=== PATIENT | male | born 1960 | race Caucasian/White ===

== ENCOUNTER 2020-05-17 05:34 | Outpatient (RCR) | payer MEDICARE, OTHER ==
[~2020-05-17] VITALS: Ht 180.3 cm; Wt 101.3 kg
[~2020-05-17 05:34] MED LIST: AMLO-167 PO; AMLO1CAP; ASPI-875 PO; ASPI-999 PO; CARI350T27 PO; FAMO20TA3 PO; HCT25T; HYDROCHLOROTHIAZIDE; IBP200T PO; META800T5; METO-272 PO; METO50TA7 PO; OMEP-10 PO; PROP1TAB77; SIMV20TA3 PO; Tylenol #3 PO; [UNRECOGNIZED DRUG - CODE]
== END 2020-05-17 10:22 | disposition home or self-care (01) ==
LOC: PREOP 05:34
PROVIDERS: ATTEND Surgery
DX: Z01.812 Encounter for preprocedural laboratory examination (principal); K80.20 Calculus of gallbladder without cholecystitis without obstruction; Z20.828 Contact with and (suspected) exposure to other viral communicable diseases
CPT/HCPCS: 87635

== ENCOUNTER 2020-05-20 07:33 | Day surgery (SDC) | payer MEDICARE, OTHER ==
[~2020-05-20] VITALS: Ht 180.3 cm; Wt 101.3 kg
[2020-05-20] VITALS (11 sets, daily range): BP systolic 105–134; BP diastolic 61–90
--- OUTSIDE RECORDS SUMMARY | 2020-05-20 07:41 | XMS REPORT | Continuity of Care Document ---
Demographics Preferred Language Unknown Marital Status Unknown Mandaen Affiliation Unknown Race Unknown Ethnic Group Unknown Author Organization Unknown Address Unknown Phone Unavailable Allergies Active Description Code Type Severity Reaction Onset Reported/Identified Relationship to Patient Clinical Status Yes IV CONTRAST DYE I V CONTRAST DYE UNKNOWN Yes NO KNOWN DRUG ALLERGIES NO KNOWN DRUG ALLERG UNKNOWN Yes TAPE TAPE U NKNOWN Yes IV CONTRAST DYE U NKNOWN UNKNOWN Yes NO KNOWN DRUG ALLERGIES UNKNOWN NO KNOWN DRUG ALLERG Yes NO KNOWN DRUG ALLERGIES UNKNOWN UNKNOWN Yes TAPE UNKNOWN UNKNOWN Yes [id number] (IV DYE, IODINE CONTAINING) [id number] (IV DYE, IODINE CONTAINING) Mild N/A 12/19/2009 Yes Iodinated Contrast Media [id number] Drug Allergy Unknown Hives 2020 Medications There is no data. 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, 09/03/2015 BURAK MURRYP Ot I73.9 10/14/2015 KEREN GARICA MD Ot M47.816 12/17/2015 BURAK MURRYP Ot E78.5 12/17/2015 BURAK MURRYP Ot I 10 12/17/2015 BURAK MURRYP Ot I25.10 12/17/2015 BURAK MURRYP Ot I77.9 10/04/2016 BURAK MURRY COOK PICKLED MEAT Ot 786.50 CHEST PAIN NOS 10/04/2016 KOREY SILVA MD Ot 840.4 SPRAIN ROTATOR CUFF 10/04/2016 KOREY SILVA MD Ot 840.7 (SLAP) SUPERIOR GLENOID LABRUM LESIONS 10/04/2016 KOREY SILVA MD Ot E000.8 OTHER EXTERNAL CAUSE STATUS 10/04/2016 KOREY SILVA MD Ot E928.9 ACCIDENT NOS 10/04/2016 BURAK MURRY COOK PICKLED MEAT Ot I73.9 PERIPHERAL VASCULAR DISEASE, UNSPECIFIED 10/04/2016 JOSE MARTÍNEZ, KEREN Hurtado Ot M47.816 SPONDYLOSIS W/O MYELOPATHY OR RADICULOPA 10/04/2016 BURAK MURRYP Ot E78.5 HYPERLIPIDEMIA, UNSPECIFIED 10/04/2016 BURAK MURRY COOK PICKLED MEAT Ot I 10 ESSENTIAL (PRIMARY) HYPERTENSION 10/04/2016 BURAK MURRYP Ot I25.10 ATHSCL HEART DISEASE OF [place] CORONARY 10/04/2016 BURAK MURRY COOK PICKLED MEAT Ot I77.9 DISORDER OF ARTERIES AND ARTERIOLES, UNS 10/05/2016 AIME ROSS MD Ot M48.0 6 SPINAL STENOSIS, LUMBAR REGION 10/05/2016 AIME ROSS MD Ot M48.0 6 SPINAL STENOSIS, LUMBAR REGION 10/10/2016 AIME ROSS MD Ot M48.0 6 SPINAL STENOSIS, LUMBAR REGION 10/22/2016 ALVINO GAMBOA A 924.2 0 CONTUSION OF FOOT 10/22/2016 ALVINO GAMBOA S90.3 1XA CONTUSION OF RIGHT FOOT, INITIAL ENCOUNTER 10/30/2016 AIME ROSS MD Ot M48.0 6 SPINAL STENOSIS, LUMBAR REGION 01/23/2017 AIME ROSS 724.2 LUMBAGO 01/23/2017 AIME ROSS M54.5 LOW BACK PAIN 09/27/2017 W 401.1 BE GN ESSENTIAL HYPERTENSION 09/27/2017 A 709.9 UNSP ECIFIED DISORDER OF SKIN AND SUBCUTANEOUS TISSUE 09/27/2017 W I10 ESSENT IAL (PRIMARY) HYPERTENSION 09/27/2017 A L98.9 DISO RDER OF THE SKIN AND SUBCUTANEOUS TISSUE, UNSPECIFIED 01/11/2018 Brokob, Jeanna W 729.5 PAIN IN LIMB 01/11/2018 Brokob, Jeanna W M79.643 PAIN IN UNSPECIFIED HAND 01/11/2018 Brokob, Jeanna W 053.9 HERPES ZOSTER WITHOUT MENTION OF COMPLICATION 01/11/2018 Brokob, Jeanna W 729.5 PAIN IN LIMB 01/11/2018 Brokob, Jeanna W B02.9 ZOSTER WITHOUT COMPLICATIONS 01/11/2018 Brokob, Jeanna W M79.643 PAIN IN UNSPECIFIED HAND 01/11/2018 W 053.9 HERP ES ZOSTER WITHOUT MENTION OF COMPLICATION 01/11/2018 W 729.5 PAIN IN LIMB 01/11/2018 W B02.9 ZOST ER WITHOUT COMPLICATIONS 01/11/2018 W M79.643 PA IN IN UNSPECIFIED HAND 01/11/2018 Brokob, Jeanna W 053.9 HERPES ZOSTER WITHOUT MENTION OF COMPLICATION 01/11/2018 Brokob, Jeanna W 729.5 PAIN IN LIMB 01/11/2018 Brokob, Jeanna W B02.9 ZOSTER WITHOUT COMPLICATIONS 01/11/2018 Brokob, Jeanna W M79.643 PAIN IN UNSPECIFIED HAND 05/27/2019 Adeola Orantes W 466.0 ACUTE BRONCHITIS 05/27/2019 Vianey Orantesa W 780.79 OTHER MALAISE AND FATIGUE 05/27/2019 Vianey Orantesa W 989.5 TOXIC EFFECT OF VENOM 05/27/2019 Vianey Orantesa W J20.9 ACUTE BRONCHITIS, UNSPECIFIED 05/27/2019 Lamberto Adeola W R53.83 OTHER FATIGUE 05/27/2019 Lamberto Adeola W S60.229 CONTUSION OF UNSPECIFIED HAND 05/27/2019 Lamberto Adeola W 466.0 ACUTE BRONCHITIS 05/27/2019 Lamberto Adeola W 780.52 INSOMNIA, UNSPECIFIED 05/27/2019 Lamberto Adeola W 780.79 OTHER MALAISE AND FATIGUE 05/27/2019 Lamberto Adeola W 989.5 TOXIC EFFECT OF VENOM 05/27/2019 Vianey Orantesa W G47.00 INSOMNIA, UNSPECIFIED 05/27/2019 Lamberto Adeola W J20.9 ACUTE BRONCHITIS, UNSPECIFIED 05/27/2019 Adeola Orantes W R53.83 OTHER FATIGUE 05/27/2019 Adeola Orantes W S60.229 CONTUSION OF UNSPECIFIED HAND 05/27/2019 W 466.0 ACUT E BRONCHITIS 05/27/2019 W 780.52 INS OMNIA, UNSPECIFIED 05/27/2019 W 780.79 OTH ER MALAISE AND FATIGUE 05/27/2019 W 989.5 TOXI C EFFECT OF VENOM 05/27/2019 W G47.00 INS OMNIA, UNSPECIFIED 05/27/2019 W J20.9 ACUT E BRONCHITIS, UNSPECIFIED 05/27/2019 W R53.83 OTH ER FATIGUE 05/27/2019 W S60.229 CO NTUSION OF UNSPECIFIED HAND 05/27/2019 Adeola Orantes W 466.0 ACUTE BRONCHITIS 05/27/2019 Adeola Orantes 780.52 INSOMNIA, UNSPECIFIED 05/27/2019 Adeola Orantes W 780.79 OTHER MALAISE AND FATIGUE 05/27/2019 Adeola Orantes W 989.5 TOXIC EFFECT OF VENOM 05/27/2019 Adeola Orantes G47.00 INSOMNIA, UNSPECIFIED 05/27/2019 Adeola Orantes W J20.9 ACUTE BRONCHITIS, UNSPECIFIED 05/27/2019 Adeola Orantes W R53.83 OTHER FATIGUE 05/27/2019 Adeola Orantes W S60.229 CONTUSION OF UNSPECIFIED HAND 05/10/2020 LOVELY, BURAK L COOK PICKLED MEAT Ot I73.9 PERIPHERAL VASCULAR DISEASE, UNSPECIFIED 05/10/2020 JOSE MARTÍNEZ, KEREN Hurtado Ot M47.816 SPONDYLOSIS W/O MYELOPATHY OR RADICULOPA 05/10/2020 BAIMA, BURAK L COOK PICKLED MEAT Ot E78.5 HYPERLIPIDEMIA, UNSPECIFIED 05/10/2020 BAIMA, BURAK L COOK PICKLED MEAT Ot I 10 ESSENTIAL (PRIMARY) HYPERTENSION 05/10/2020 BAIHELEN, BURAK L COOK PICKLED MEAT Ot I25.10 ATHSCL HEART DISEASE OF [place] CORONARY 05/10/2020 BAIHELEN, BURAK L COOK PICKLED MEAT Ot I77.9 DISORDER OF ARTERIES AND ARTERIOLES, UNS 05/10/2020 CODY MARTÍNEZ, AIME Hurtado Ot M48.0 6 SPINAL STENOSIS, LUMBAR REGION 2020 LOVELY, BURAK L COOK PICKLED MEAT Ot I73.9 PERIPHERAL VASCULAR DISEASE, UNSPECIFIED 2020 JOSE MARTÍNEZ, KEREN Hurtado Ot M47.816 SPONDYLOSIS W/O MYELOPATHY OR RADICULOPA 2020 BURAK MURRY COOK PICKLED MEAT Ot E78.5 HYPERLIPIDEMIA, UNSPECIFIED 2020 BURAK MURRY COOK PICKLED MEAT Ot I 10 ESSENTIAL (PRIMARY) HYPERTENSION 2020 BURAK MURRY COOK PICKLED MEAT Ot I25.10 ATHSCL HEART DISEASE OF [place] CORONARY 2020 BURAK MURRY COOK PICKLED MEAT Ot I77.9 DISORDER OF ARTERIES AND ARTERIOLES, UNS 2020 CODY MARTÍNEZ, AIME Hurtado Ot M48.0 6 SPINAL STENOSIS, LUMBAR REGION Procedures There is no data. Results Test Result Range [facility] - 09/27/16 10:58 Anion Gap 15 6-14 BUN 17 mg/dL 5-25 Calcium 9.5 mg/dL 8.3-10.4 Chloride 107 mmol/L 95-114 CO2 24 mEq/L 22-33 Creat 1.34 mg/dL 0.50-1.50 eGFR 55 mL/min/1.73m2 >59 Glucose 120 mg/dL 70-110 Osmo 294 280-295 Potassium 5.2 mmol/L 3.5-5.3 Sodium 141 mmol/L 134-148 BNP - 09/29/16 16:07 BNP <10.00 pg/ml 0.00-100.00 [facility] - 11/08/16 10:36 Anion Gap 14 6-14 BUN 15 mg/dL 5-25 Calcium 9.4 mg/dL 8.3-10.4 Chloride 106 mmol/L 95-114 CO2 25 mEq/L 22-33 Creat 1.59 mg/dL 0.50-1.50 eGFR 45 mL/min/1.73m2 >59 Glucose 109 mg/dL 70-110 Osmo 290 280-295 Potassium 4.9 mmol/L 3.5-5.3 Sodium 140 mmol/L 134-148 Comprehensive Metabolic Panel - 05/18/17 15:34 Albumin 4.0 g/dL 3.6-5.1 ALP 84 U/L 35-130 ALT 32 U/L 6-45 Anion Gap 14 6-14 AST 31 U/L 2-40 BUN 13 mg/dL 5-25 Calcium 9.3 mg/dL 8.3-10.4 Chloride 107 mmol/L 95-114 CO2 25 mEq/L 22-33 Creat 1.31 mg/dL 0.50-1.50 eGFR 56 mL/min/1.73m2 >59 Globulin 3.1 g/dL 2.3-3.5 Glucose 106 mg/dL 70-110 Osmo 292 280-295 Potassium 4.5 mmol/L 3.5-5.3 Sodium 141 mmol/L 134-148 TBil 1.1 mg/dL 0.2-1.2 TP 7.1 g/dL 6.0-8.3 Sed Rate - 01/11/18 15:04 Sed Rate 2 mm/hr 0-9 LI w/Reflex - 01/11/18 16:32 LI Direct Negative Negative LI w/Reflex - 01/11/18 16:32 LI DIRECT NEGATIVE NEGATIVE BMP - 01/18/18 14:21 Anion Gap 13 6-14 BUN 21 mg/dL 5-25 Calcium 9.6 mg/dL 8.3-10.4 Chloride 106 mmol/L 95-114 CO2 23 mEq/L 22-33 Creat 1.52 mg/dL 0.50-1.50 eGFR 47 mL/min/1.73m2 >59 Glucose 103 mg/dL 70-110 Osmo 288 280-295 Potassium 4.4 mmol/L 3.5-5.3 Sodium 138 mmol/L 134-148 Magnesium - 10/04/18 16:41 Mg++ 2.2 mg/dL 1.6-2.6 Hemoglobin A1C - 02/20/19 12:19 % A1C 6.50 % 5.40-6.60 AvGlu 154 mg/dL 70-110 Comprehensive Metabolic Panel - 03/31/19 09:57 Albumin 4.4 g/dL 3.6-5.1 ALP 94 U/L 35-130 ALT 30 U/L 6-45 Anion Gap 11 6-14 AST 28 U/L 2-40 BUN 21 mg/dL 5-25 Calcium 9.7 mg/dL 8.3-10.4 Chloride 112 mmol/L 95-114 CO2 23 mEq/L 22-33 Creat 1.44 mg/dL 0.50-1.50 eGFR 50 mL/min/1.73m2 >59 Globulin 3.1 g/dL 2.3-3.5 Glucose 111 mg/dL 70-110 Osmo 295 280-295 Potassium 4.6 mmol/L 3.5-5.3 Sodium 141 mmol/L 134-148 TBil 1.4 mg/dL 0.2-1.2 TP 7.5 g/dL 6.0-8.3 Francisella tularensis Abs - 05/27/19 09 :41 Francisella tularensis IgG Negative Neg ative Francisella tularensis IgM Negative Neg ative Ehrlichia Ab Panel - 05/27/19 09:41 E. chaffeensis (HME) IgG Titer Negative Neg:<1:64 E. chaffeensis (HME) IgM Titer Negative Neg:<1:20 HGE IgG Titer Negative Neg:<1:64 HGE IgM Titer Negative Neg:<1:20 Lyme Ab/Western Blot Reflex - 05/27/19 0 9:41 Lyme IgG/IgM Ab <0.91 ISR 0.00-0.90 Lyme Disease Ab, Quant, IgM <0.80 index 0.00-0.79 Katya Mtn Spotted Fev, IgG, Qn - 9 09:41 RMSF, IgG, EIA Positive Negative RMSF, IgG, IFA - 05/27/19 09:41 RMSF, IgG, IFA <1:64 Neg <1:64 Katya Mtn Spotted Fever, IgM - 05/27/19 09:41 Katya Mtn Spotted Fever, IgM 0.92 index 0.00-0.89 Thyroid Stimulating Hormone - 05/27/19 0 9:41 TSH 0.86 mIU/mL 0.32-5.00 Sputum Culture - 05/27/19 09:41 PRELIM CULTURE RESULTS Moderate Gram Positiv e Mixed Normal Tania [id number] Pathogen Isolated, Day 1 FINAL CULTURE RESULTS Moderate Gram Positive Mixed Tania [id number] Pathogens Isolated [id number] Further Workup done MEDIA PLATED Setup at 11:03 on 05/27/2019 Ehrlichia Ab Panel - 05/27/19 09:41 E. CHAFFEENSIS (HME) IGG TITER NEGATIVE NEG:<1:64 E. CHAFFEENSIS (HME) IGM TITER NEGATIVE NEG:<1:20 HGE IGG TITER NEGATIVE NEG:<1:64 HGE IGM TITER NEGATIVE NEG:<1:20 Katya Mtn Spotted Fever, IgM - 05/27/19 09:41 KATYA MTN SPOTTED FEVER, IGM 0.92 INDEX 0.00-0.89 Francisella tularensis Antibody IFA - 09:41 FRANCISELLA TULARENSIS IGG NEGATIVE NEG ATIVE FRANCISELLA TULARENSIS IGM NEGATIVE NEG ATIVE Katya Akn Spotted Fev, IgG, Qn - 9 10:34 RMSF, IgG, EIA Equivocal Negative RMSF, IgG, IFA - 06/11/19 10:34 RMSF, IgG, IFA <1:64 Neg <1:64 Katya Akn Spotted Fever, IgM - 06/11/19 10:34 Katya Mtn Spotted Fever, IgM 0.94 index 0.00-0.89 Katya Mtn Spotted Fever, IgM - 06/11/19 10:34 KATYA MTN SPOTTED FEVER, IGM 0.94 INDEX 0.00-0.89 Comprehensive Metabolic Panel - 01/09/20 10:41 Albumin 4.6 g/dL 3.6-5.1 ALP 91 U/L 35-130 ALT 26 U/L 6-45 Anion Gap 14 6-14 AST 26 U/L 2-40 BUN 14 mg/dL 5-25 Calcium 9.3 mg/dL 8.3-10.4 Chloride 106 mmol/L 95-114 CO2 25 mEq/L 22-33 Creat 1.59 mg/dL 0.50-1.50 eGFR 45 mL/min/1.73m2 >59 Globulin 3.3 g/dL 2.3-3.5 Glucose 115 mg/dL 70-110 Osmo 290 280-295 Potassium 4.6 mmol/L 3.5-5.3 Sodium 140 mmol/L 134-148 TBil 1.8 mg/dL 0.2-1.2 TP 7.9 g/dL 6.0-8.3 Lipase - 01/09/20 10:41 Lipase 23 U/L 7-59 Encounters ACCT No. Visit Date/Time Discharge Status Pt. Type Provider Facility Loc./Unit Complaint [id number] 01/14/2018 12:14:00 Document Registration [id number] 06/13/2019 14:10:00 Document Registration [id number] 06/05/2019 12:10:00 Document Registration [id number] 05/29/2019 15:09:00 Document Registration [id number] 05/29/2019 18:08:00 Document Registration [id number] 05/17/2020 05:34:00 020 10:22:00 DIS Outpatient URSULA WHITNEY MD Via [facility] PREOP [place] [id number] 10/04/2016 13:31:00 23:59:59 CLS Outpatient AIME ROSS MD [facility] RAD LUMBAR STENOSIS [id number] 11/23/2015 11:44:00 23:59:59 CLS Outpatient BAIMABURAK COOK PICKLED MEAT Via [facility] CARD CAD,HTN,HLP [id number] 09/10/2015 09:21:00 23:59:59 CLS Outpatient KEREN GARCIA MD [facility] CARD SPONDYLOSIS [id number] 08/10/2015 12:45:00 23:59:59 CLS Outpatient BURAK MURRY COOK PICKLED MEAT Via [facility] RAD CLADICATION [id number] 07/30/2015 10:17:00 11:18:00 DIS Outpatient KEREN GARCIA MD [facility] CARD DDD LUMBAR [id number] 08/14/2014 14:26:00 014 23:59:59 CLS Outpatient KOREY SILVA MD [facility] RAD SLAP TEAR [id number] 02/14/2013 07:43:00 013 23:59:59 CLS Outpatient BURAK MURRY COOK PICKLED MEAT [facility] RAD CP [id number] 05/20/2020 08:00:00 P EN Preadmit URSULA WHITNEY MD [facility] [place] [id number] 01/09/2020 13:32:00 01/09/2020 23:59 :00 DIS Outpatient Adeola Orantes [id number] 01/09/2020 10:35:00 01/09/2020 23:59 :00 DIS Outpatient Adeola Orantes [id number] 06/11/2019 10:24:00 06/11/2019 23:59: 00 DIS Outpatient Adeola Orantes [id number] 05/27/2019 09:36:00 05/27/2019 23:59: 00 DIS Outpatient Adeola Orantes [id number] 03/31/2019 09:54:00 03/31/2019 23:59: 00 DIS Outpatient Adeola Orantes [id number] 02/20/2019 12:15:00 02/20/2019 23:59: 00 DIS Outpatient Adeola Orantes [id number] 10/04/2018 16:41:00 10/04/2018 23:59: 00 DIS Outpatient Adeola Orantes [id number] 01/18/2018 14:15:00 01/18/2018 23:59: 00 DIS Outpatient BrokobJeanna [id number] 01/11/2018 15:00:00 01/11/2018 23:59: 00 DIS Outpatient MonikabJeanna [id number] 05/18/2017 15:22:00 05/18/2017 23:59: 00 DIS Outpatient Adeola Orantes [id number] 01/23/2017 14:14:00 03/14/2017 10:00: 00 DIS Outpatient CODY AIME [id number] 03/01/2017 10:21:00 03/01/2017 23:59: 00 DIS Outpatient Adeola Orantes [id number] 11/08/2016 10:31:00 11/08/2016 23:59: 00 DIS Outpatient Adeola Orantes [id number] 10/22/2016 19:56:00 10/22/2016 21:00: 00 DIS Outpatient ALVINO GAMBOA [facility] [id number] 09/29/2016 16:01:00 09/29/2016 23:59: 00 DIS Outpatient Adeola Orantes [id number] 09/27/2016 10:54:00 09/27/2016 23:59: 00 DIS Outpatient Adeola Orantes [id number] 05/27/2019 09:00:00 Document Registration [id number] 01/11/2018 14:30:00 Document Registration [id number] 09/27/2017 13:36:00 Document Registration
[2020-05-20] MEDS ORDERED: fentaNYL INJECTION 100 MCG/2 ML AMP ONE (07:51)
[2020-05-20] MEDS ORDERED: ROCURONIUM 10 MG/ML 5 ML SYRINGE IV ONE (07:51)
[2020-05-20] MEDS ORDERED: MIDAZOLAM 2 MG/2 ML (VERSED) VIAL ONE (07:51)
[2020-05-20] MEDS ORDERED: LIDOCAINE PF 2% 5 ML (XYLOCAINE) VIAL ONE (07:51)
[2020-05-20] MEDS ORDERED: ONDANSETRON 4 MG/2 ML (SDV) Z0FRAN ONE (07:51)
[2020-05-20] MEDS ORDERED: SEVOFLURANE (ULTANE) 15 ML INHAL SOLN ONE ×4 (07:51→10:06)
[2020-05-20] MEDS ORDERED: proPOfol 200 MG/20 ML (DIPRIVAN) VIAL IV ONE (07:51)
--- NOTE | 2020-05-20 08:05 | Progress Note-Pre Operative ---
Pre-Operative Progress Note H&P Reviewed The H&P was reviewed, patient examined and no changes noted. Date Seen by Provider: May 20, 2020 Time Seen by Provider: 08:05 Date H&P Reviewed: May 20, 2020 Time H&P Reviewed: 08:00 Pre-Operative Diagnosis: Chronic calculous cholecystitis GOSIA URIARTE APRN May 20, 2020 08:05
[2020-05-20] MEDS ORDERED: HYDR-4227 PO ×2 (08:07)
--- NOTE | 2020-05-20 08:08 | Discharge Inst-Surgical ---
D/C Lap Instructions-KIDO Reconcile Patient Problems Problems Reviewed?: Yes New, Converted, or Re-Newed RX: RX on Chart Follow Up Appt in 2 weeks Activity as tolerated No driving for 24 hours No driving while on pain medications Incentive Spirometry use every 2 hours while awake Regular Diet Symptoms to Report: Fever over 101 degree F, Nausea/Vomiting Infection Signs and Symptoms to report: Increased redness, Foul odor of wound, Increased drainage Bathing instructions: May shower Operative Area Clean/Dry; Keep incision clean/dry If any problems/questions: Contact your physician or go to Emergency Room GOSIA URIARTE APRN May 20, 2020 08:08
[2020-05-20] MEDS: LACTATED RINGERS 1,000 ML IV PRN ×2 (08:13→10:12)
[2020-05-20] MEDS ORDERED: morphine INJ 10 MG/ML 1ML (SYR OR VIAL) IVP PRN (08:15)
[2020-05-20] MEDS ORDERED: ceFAZolin 2 GM IV Premixed 50 ML IV ONE (08:15)
[2020-05-20] MEDS ORDERED: HYDROcodone/APAP 5 MG/325 MG (LORTAB) TAB PO ONE (08:15)
[2020-05-20] MEDS ORDERED: ONDANSETRON 4 MG/2 ML (SDV) Z0FRAN IVP PRN ×2 (08:15→10:45)
[2020-05-20] MEDS ORDERED: ACETAMINOPHEN 325 MG TABLET PO PRN (08:15)
[2020-05-20 08:20] LABS: BASOPHILS % (AUTO) 0 % (0-10); EOSINOPHILS # (AUTO) 0.4 10^3/uL (0.0-0.3); EOSINOPHILS % (AUTO) 7 % (0-10); HEMATOCRIT 40 % (40-54); HEMOGLOBIN 13.8 G/DL (13.3-17.7); LYMPHOCYTES # (AUTO) 1.6 X 10^3 (1.0-4.0); LYMPHOCYTES % (AUTO) 27 % (12-44); MEAN CORPUSCULAR HEMOGLOBIN 31 PG (25-34); MEAN CORPUSCULAR HGB CONC 35 G/DL (32-36); MEAN CORPUSCULAR VOLUME 88 FL (80-99); MONOCYTES # (AUTO) 0.5 X 10^3 (0.0-1.0); MONOCYTES % (AUTO) 9 % (0-12); NEUTROPHILS # (AUTO) 3.3 X 10^3 (1.8-7.8); NEUTROPHILS % (AUTO) 57 % (42-75); PLATELET COUNT 279 10^3/uL (130-400); RED CELL DISTRIBUTION WIDTH 13.6 % (10.0-14.5); WHITE BLOOD COUNT 5.8 10^3/uL (4.3-11.0)
[2020-05-20] MEDS ORDERED: BUP/EPI 0.5% 1:200,000 (MARCAINE) 10ML VIAL IJ ONE (08:22)
[2020-05-20] MEDS ORDERED: ATROPINE INJ 0.4 MG/ML SDV ONE (10:06)
[2020-05-20] MEDS ORDERED: HYDROmorphone 2 MG/ML VIAL (DILAUDID) ONE (10:21)
--- NOTE | 2020-05-20 10:36 | Anesthesia-General Post-Op ---
General Patient Condition Mental Status/LOC: Same as Preop Cardiovascular: Satisfactory Nausea/Vomiting: Absent Respiratory: Satisfactory Pain: Controlled Complications: Absent Post Op Complications Complications None Follow Up Care/Instructions Patient Instructions None needed. Anesthesia/Patient Condition Patient Condition Patient is doing well, no complaints, stable vital signs, no apparent adverse anesthesia problems. No complications reported per nursing. ALANA ROBERT CRNA May 20, 2020 10:36
--- NOTE | 2020-05-20 10:36 | Progress Note-Post Operative ---
Post-Operative Progess Note Surgeon (s)/Solar Sales Assessor (s) Surgeon URSULA WHITNEY MD Solar Sales Assessor: codi gamboa PITCH GATHERER Pre-Operative Diagnosis Chronic calculous cholecystitis Post-Operative Diagnosis same Procedure & Operative Findings Date of Procedure 05/20/20 Procedure Performed/Findings laparoscopic cholecystectomy Anesthesia Type get Estimated Blood Loss Estimated blood loss (mL): minimal Specimens/Packing Specimens Removed gallbladder URSULA WHITNEY MD May 20, 2020 10:36
[2020-05-20] MEDS ORDERED: GLYCOPYRROLATE 0.2 MG/ML (ROBINUL) 2 ML VIAL ONE (10:38)
[2020-05-20] MEDS ORDERED: NEOSTIGMINE 3 MG/3 ML VIAL ONE (10:38)
[2020-05-20] MEDS ORDERED: MEPERIDINE (DEMEROL) INJ 50 MG/ML IVP ONE (10:45)
[2020-05-20] MEDS ORDERED: morphine INJ 10 MG/ML 1ML (SYR OR VIAL) IVP ONE (10:45)
[2020-05-20] MEDS ORDERED: HYDROcodone/APAP 5 MG/325 MG (LORTAB) TAB ONE (11:42)
--- NOTE | 2020-05-20 14:51 | OPERATIVE REPORT ---
DATE OF SERVICE: 05/20/2020 ATTENDING PRIMARY CARE PHYSICIAN: Adeola Orantes MD PREOPERATIVE DIAGNOSIS: Symptomatic chronic calculous cholecystitis. POSTOPERATIVE DIAGNOSIS: Symptomatic chronic calculous cholecystitis. PROCEDURE: Laparoscopic cholecystectomy. SURGEON: Ursula Whitney MD. STONE SETTER METAL OPTICAL FRAMES: Adam Prasad APRN. ANESTHESIA: General endotracheal. ESTIMATED BLOOD LOSS: Minimal. FINDINGS: Adhesion tissue, anterior abdominal wall from previous exploratory laparotomy, distended gallbladder with multiple small gallstones. DISPOSITION: The patient tolerated the procedure well. INDICATIONS: The patient is a 60-year-old male who has had pain in the right upper abdominal quadrant for the past year. He states that in the past six months, this has become significantly worse with pain in the right upper abdominal quadrant usually after eating meals with pain referred to the back as well. He states that this has become much more frequent lately after especially eating greasy meals. An ultrasound was performed, which did show gallstones. DESCRIPTION OF PROCEDURE: The patient was brought to the operating room, laid supine on the table. After adequate IV pain and sedative medications and general endotracheal intubation, the abdomen was prepped and draped in standard surgical fashion. A 0.5% Marcaine with epinephrine was used to anesthetize overlying skin in the left upper abdominal quadrant and a transverse skin incision made using a 15 blade. An 0 silk suture was applied to the medial aspect incision for retraction and a Veress needle inserted with a low opening pressure of 0 mmHg. The abdomen was then insufflated to 15 mmHg pressure. The Veress needle removed and a 5 mm XL trocar placed followed by 5 mm 45-degree angle laparoscope visualizing the peritoneal cavity. A 4-quadrant abdominal exploration was performed. There were dense omental adhesions towards the anterior abdominal wall due to her previous midline laparotomy incision. The falciform ligament was identified. We then decided to proceed with visualization from the right side and a 5 mm port was placed in the right upper abdominal quadrant. The omental adhesions were then taken down bluntly using a grasper with visualization of good hemostasis. A 10 mm supraumbilical port was then placed after the skin and peritoneal lining were anesthetized using 0.5% Marcaine with epinephrine and a transverse skin incision made using a 15 blade. The patient was then placed in reverse Trendelenburg position as well as plane right side up, left side down. The fundus of the gallbladder was identified; however, there was a significant amount of omental adhesion tissue, which was then taken down using blunt dissection as well as electrocautery. The fundus was then retracted anteriorly and superiorly. We continued to proceed with dissection of the omentum off the gallbladder using blunt dissection as well as cautery. The hepatoduodenal ligament was then opened using cautery as well as blunt dissection using the hook instrument. The entire critical view of safety was identified including the cystic duct and artery as the only two structures going into the gallbladder as well as the cystic plate behind the proximal gallbladder. A timeout was then taken, and the cystic duct and artery were then clipped proximally, distally and cut with EndoShears. The gallbladder was then dissected off the liver bed using cautery on hook instrument with visualization of good hemostasis as well as no leaking ducts of Luschka. The gallbladder was removed through the 10 mm port site using an EndoCatch bag. The 10 mm port site fascia and peritoneum were then closed under direct visualization using a Eric-José Miguel device and 0 Vicryl suture. The abdomen was desufflated and remaining ports removed. All skin incisions were closed using 4-0 Monocryl running subcuticular sutures. Wounds were then cleaned and covered with Dermabond. The patient tolerated the procedure well. We will start IV normal pain medication as well as a clear liquid diet. Once he is tolerating clears, has good pain control with oral pain medications, ambulating well, we will discharge him home. He will be instructed to do no heavy lifting or exertion for the next two weeks. Job ID: [id number] DocumentID: [id number] Dictated Date: 05/20/2020 10:34:44 Cotton Tipper Date: 05/20/2020 14:51:29 Dictated By: URSULA WHITNEY MD
== END 2020-05-20 12:45 | disposition home or self-care (01) ==
LOC: SDC 07:33
PROVIDERS: ATTEND Surgery
DX: K80.12 Calculus of gallbladder with acute and chronic cholecystitis without obstruction (principal); I10 Essential (primary) hypertension; K21.9 Gastro-esophageal reflux disease without esophagitis; M10.9 Gout, unspecified; M06.9 Rheumatoid arthritis, unspecified; E66.9 Obesity, unspecified; Z68.31 Body mass index [BMI] 31.0-31.9, adult; Z79.899 Other long term (current) drug therapy; Z79.82 Long term (current) use of aspirin; Z91.041 Radiographic dye allergy status; Z91.048 Other nonmedicinal substance allergy status; Z11.2 Encounter for screening for other bacterial diseases
CPT/HCPCS: 36415; 85025; 87081

== ENCOUNTER → 2022-03-24 | Outpatient (CLI) | payer MEDICARE, OTHER ==
[~2022-03-24] VITALS: Ht 180 cm; Wt 104.0 kg
[~2022-03-24] MED LIST changes: +HYDR-4227 PO; +REGADENOSON 0.4 MG/5 ML SYR (LEXISCAN) IV ONE
[2022-03-24] MEDS: CATHETER FLUSH 10 ML SYR IVP PRN ×2 (07:33→09:18)
[2022-03-24 09:17] VITALS: BP 191/106
--- NOTE | 2022-03-27 12:21 | STRESS TEST ---
DATE OF SERVICE: 03/24/2022 RESTING AND POST REGADENOSON TECHNETIUM-99M TETROFOSMIN SPECT CT IMAGING ORDERING PHYSICIAN: Dr. Tavarez. PRIMARY PHYSICIAN: Dr. Orantes. CLINICAL DIAGNOSIS: Shortness of breath. Baseline images were carried out after injection of 10.85 mCi of technetium-99m Tetrofosmin. This was followed by 0.4 mg regadenoson and 28.2 mCi of technetium-99m Tetrofosmin for stress imaging. The electrocardiogram showed sinus rhythm at baseline. It did not change significantly with the regadenoson infusion. Review of images at rest and following stress does not indicate any distinct perfusion defects consistent with significant myocardial ischemia or infarction. Some degree of diaphragmatic attenuation is seen both at rest and following regadenoson infusion. Gated images show normal global left ventricular systolic function with normal regional wall motion, including the diaphragmatic wall of the left ventricle. Left ventricular ejection fraction is calculated to be 75%. CONCLUSIONS: 1. No evidence of significant myocardial ischemia or infarction on this study. 2. Normal regional wall motion. 3. Normal global left ventricular systolic function with a calculated ejection fraction of 75%. Job ID: [id number] DocumentID: [id number] Dictated Date: 03/27/2022 09:27:42 Edger Hand Date: 03/27/2022 12:21:09 Dictated By: HERRERA TAVAREZ MD, MA, FACP, FACC,
== END ==
LOC: CARD 07:18
PROVIDERS: ATTEND Internal Medicine Cardiovascular Disease
DX: R06.02 Shortness of breath (principal)
CPT/HCPCS: 78452; 93017; A9502